=== PATIENT | female | born 1990 | race American Indian/Alaskan Native ===

== ENCOUNTER 2018-01-16 12:18 | Outpatient (CLI) | payer MEDICAID ==
[2018-01-16 12:34] VITALS: BP 101/63
[2018-01-16] MEDS ORDERED: LACTATED RINGERS 500 ML IV ONE (12:35)
[2018-01-16 14:10] LABS: Bilirubin,Urine NEG (Negative); Blood,Urine NEG (Negative); Color,Urine Yellow (Yellow); Mucus,Urine FEW /HPF; Protein,Urine <15 mg/dL mg/dL (Negative)
[2018-01-16] MEDS ORDERED: PROCARDIA*For Tocolysis only PO ONE (14:52)
== END 2018-01-16 17:17 | disposition home or self-care (01) ==
LOC: TRG 12:18
PROVIDERS: ATTEND Obstetrics & Gynecology
DX: O47.03 False labor before 37 completed weeks of gestation, third trimester (principal); Z3A.28 28 weeks gestation of pregnancy
CPT/HCPCS: 59025; 81001; 96360; 96361; J7120

== ENCOUNTER 2018-03-26 16:35 | Outpatient (CLI) | payer MEDICAID ==
[2018-03-26 16:50] VITALS: BP 122/77
== END 2018-03-26 17:44 | disposition home or self-care (01) ==
LOC: TRG 16:35
PROVIDERS: ATTEND Obstetrics & Gynecology
DX: O47.1 False labor at or after 37 completed weeks of gestation (principal); O99.513 Diseases of the respiratory system complicating pregnancy, third trimester; Z3A.38 38 weeks gestation of pregnancy
CPT/HCPCS: 59025

== ENCOUNTER 2018-04-07 19:14 | Inpatient (IN) | payer MEDICAID ==
[2018-04-07] MEDS ORDERED: MINERAL OIL PO PRN (20:18)
[2018-04-07] MEDS ORDERED: BRETHINE SUB-Q PRN (20:18)
[2018-04-07] MEDS ORDERED: XYLOCAINE 2% INFILTRATI ONE (20:18)
[2018-04-07] MEDS ORDERED: BRETHINE IVP PRN (20:18)
[2018-04-07] MEDS ORDERED: PHENERGAN PO PRN (20:24)
[2018-04-07] MEDS ORDERED: CERVIDIL VG ONE (20:24)
[2018-04-07] MEDS ORDERED: POLYCILLIN/NS 2 GM/100 ML 2 GM/100 ML BAG IV ONE (20:24)
[2018-04-07 20:41] LABS: Hematocrit 37.2 % (30.3-42.9); Hemoglobin 12.3 gm/dl (10.1-14.3); Mean Corpuscular HGB Conc 33 % (30-34); Mean Corpuscular Hemoglobin 29 pg (28-32); Mean Corpuscular Volume 89 fl (79-97); Platelet Count 212 K/mm3 (140-440); Red Blood Count 4.18 M/mm3 (3.65-5.03); Red Cell Distribution Width 14.6 % (13.2-15.2)
[2018-04-07] MEDS ORDERED: PITOCin/NS 20 UNIT/1000ML DRIP 20 UNITS/1,000 ML BAG IV SCH (21:00)
[2018-04-08] MEDS ORDERED: AMPICILLIN/NS 1 GM/50 ML 1 GM/50 ML BAG IV SCH (00:28)
[2018-04-08] MEDS: SUBLIMAZE IV PRN ×2 (00:35→09:11)
[2018-04-08] MEDS: LACTATED RINGERS 1,000 ML IV SCH ×5 (00:42→11:17)
[2018-04-08] MEDS: STADOL IV PRN ×3 (02:12→10:10)
[2018-04-08] MEDS ORDERED: CYTOTEC VG ONE (02:45)
--- NOTE | 2018-04-08 08:20 | History and Physical Report ---
History of Present Illness Date of examination: 04/08/18 Date of admission: 04/07/18 19:14 Chief complaint: I'm here to be induced History of present illness: Patient is a 28-year-old 1P0 presents for induction of labor at 40 weeks due to oligohydramnios. She has had a relatively uncomplicated course. She has her care into that in the first trimester. Past History Past Medical History: no pertinent history Past Surgical History: no surgical history Family/Genetic History: none Social history: single - Obstetrical History Expected Date of Delivery: 04/07/18 Actual Gestation: 40 Week(s) 2 Day(s) : 1 Number of Living Children: 0 Medications and Allergies Allergies Allergy/AdvReac Type Severity Reaction Status Date / Time [place] Allergy Hives Uncoded 01/16/18 12:34 Home Medications Medication Instructions Recorded Confirmed Last Taken Type Tablet 1 tab PO DAILY 04/07/18 04/07/18 04/06/18 10:00 History Active Meds: Active Medications Butorphanol Tartrate (Stadol) 2 mg IV Q2H PRN PRN Reason: Pain , Severe (7-10) Last Admin: 04/08/18 06:58 Dose: 2 mg Ephedrine Sulfate (Ephedrine Sulfate) 10 mg IV Q2M PRN PRN Reason: Hypotension Fentanyl (Sublimaze) 100 mcg IV Q2H PRN PRN Reason: Labor Pain Last Admin: 04/08/18 00:35 Dose: 100 mcg Ampicillin Sodium (Ampicillin/Ns 1 Gm/50 Ml) 1 gm in 50 mls @ 100 mls/hr IV Q4HR MARCELLA; Protocol Lactated Ringer's (Lactated Ringers) 1,000 mls @ 125 mls/hr IV DIRECT MARCELLA Last Admin: 04/08/18 02:16 Dose: 125 mls/hr Oxytocin/Sodium Chloride (Pitocin/Ns 20 Unit/1000ml Drip) 20 units in 1,000 mls @ 125 mls/hr IV DIRECT MARCELLA Mineral Oil (Mineral Oil) 30 ml PO QHS PRN PRN Reason: Constipation Promethazine HCl (Phenergan) 25 mg PO Q6H PRN PRN Reason: Nausea And Vomiting Terbutaline Sulfate (Brethine) 0.25 mg SUB-Q ONCE PRN PRN Reason: Hyperstimulation/Hypertonicity Terbutaline Sulfate (Brethine) 0.25 mg IVP ONCE PRN PRN Reason: Hyperstimulation/Hypertonicity Review of Systems All systems: negative Gastrointestinal: abdominal pain Genitourinary: pelvic pain, contractions Psychiatric: irritability, mood swings - Vital Signs Vital signs: Vital Signs Pulse BP 98 H 117/78 04/07/18 20:15 04/07/18 20:15 Temp Pulse Resp BP Pulse Ox 98.3 F 73 20 127/74 04/08/18 07:04 04/08/18 07:03 04/08/18 07:04 04/08/18 07:03 - Physical Exam Breasts: Cardiovascular: Regular rate, Normal S1, Normal S2 Lungs: Positive: Clear to auscultation, Normal air movement Abdomen: Positive: normal appearance, soft, normal bowel sounds. Negative: distention, tenderness Genitourinary (Female): Positive: normal external genitalia, normal perenium Vulva: both: normal Vagina: Positive: normal moisture. Negative: discharge Cervix: Negative: lesion, discharge Uterus: Positive: normal size, normal contour Adnexa: both: normal Anus/Rectum: Positive: normal perianal skin, heme negative. Negative: rectal mass, hemorrhoids Extremities: Deep Tendon Reflex Grade: Normal +2 - Obstetrical Cervical Dilatation: 1 Cervical Effacement Percentage: 50 station: 2 Uterine Contraction Pattern: Regular Uterine Tone Measurement Phase: Contraction Uterine Contraction Intensity: Moderate Results Result Diagrams: 04/09/18 03:51 Abnormal lab results 04/07/18 Range/Units 20:21 WBC 11.7 H (4.5-11.0) K/mm3 All other labs normal. Assessment and Plan IUP at 40 weeks here for induction of labor at term. Will begin cytotec for induction. Anticipate
[2018-04-08] MEDS ORDERED: PITOCin/NS 30 UNIT/500ML 30 UNITS/500 ML BAG IV SCH (09:00)
[2018-04-08] MEDS ORDERED: NARCAN 2 MG/2 ML IV PRN (11:27)
[2018-04-08] MEDS ORDERED: fentaNYL-BUPIV 2 MCG/ML-0.125% 200 MCG/100 ML BAG EPIDURAL SCH (12:00)
[2018-04-08] MEDS ORDERED: PHENERGAN PO PRN (14:56)
[2018-04-08] MEDS ORDERED: BENADRYL PO PRN (14:56)
[2018-04-08] MEDS ORDERED: DULCOLAX PR PRN (14:56)
[2018-04-08] MEDS ORDERED: MILK OF MAGNESIA PO PRN (14:56)
[2018-04-08] MEDS ORDERED: NORCO 5/325 PO PRN (14:56)
[2018-04-08] MEDS ORDERED: PHENERGAN PR PRN (14:56)
[2018-04-08] MEDS ORDERED: TYLENOL PO PRN (14:56)
[2018-04-08] MEDS ORDERED: LANSINOH TP PRN (14:56)
[2018-04-08] MEDS ORDERED: ZOFRAN IV PRN (14:56)
[2018-04-08] MEDS ORDERED: TUCKS PAD TP PRN (14:56)
[2018-04-08] MEDS ORDERED: SODIUM CHLORIDE FLUSH SYRINGE 10 ML IV NR (15:00)
[2018-04-08] MEDS ORDERED: PITOCin/NS 20 UNIT/1000ML DRIP 20,000 MILLIUNITS/1,000 ML BAG IV ONE (15:06)
[2018-04-08] MEDS: MOTRIN PO SCH ×2 (18:02→22:12)
[2018-04-08] MEDS: COLACE PO SCH (22:07)
[2018-04-09 04:25] LABS: Hemoglobin 11.3 gm/dl (10.1-14.3)
--- NOTE | 2018-04-09 09:47 | Procedure Note ---
OB Delivery Note - Delivery Date of Delivery: 04/08/18 Surgeon: TIFFANIE HALE Estimated blood loss: 200cc - Vaginal Delivery presentation: vertex Delivery position: OA Intrapartum events: none Delivery induction: oxytocin Delivery monitor: external FHT, external uterine Route of delivery: Delivery placenta: spontaneous Delivery cord: 3 umbilical vessels Episiotomy: none Delivery laceration: none Anesthesia: epidural Delivery comments: Viable male delivered at 1406 over intact perineum with spontaneous cry. Apgars 9,9. Weight 6 pounds 14 ounces. Placenta delivered spontaneously and intact. No lacerations. Patient tolerated procedure well. Excellent hemostasis.
--- NOTE | 2018-04-09 10:39 | Progress Note ---
Assessment and Plan PPD 1 s/p . Doing well. Patient planning for discharge on today. Subjective - Subjective Date of service: 04/09/18 Interval history: Patient is a 28-year-old 1P0 presents for induction of labor at 40 weeks due to oligohydramnios. She has had a relatively uncomplicated course. She has her care into that in the first trimester. Patient reports: appetite normal, voiding normally, pain well controlled, ambulating normally [place]: doing well Objective - Vital Signs Latest vital signs: Vital Signs Temp Pulse Resp BP BP Pulse Ox 04/09/18 08:24 97.9 F 89 16 96/54 100 04/09/18 00:06 98.7 F 80 16 110/72 98 04/08/18 22:12 18 04/08/18 20:14 98.8 F 106 H 18 115/71 97 04/08/18 16:40 98.4 F 90 20 109/68 99 04/08/18 15:12 88 126/74 04/08/18 14:57 78 127/75 04/08/18 14:52 98.6 F 04/08/18 14:42 90 124/83 04/08/18 14:19 96 H 126/93 04/08/18 14:04 96 H 132/81 04/08/18 13:49 79 141/87 04/08/18 13:34 80 132/79 04/08/18 13:22 97 H 153/109 04/08/18 13:07 98.8 F 04/08/18 13:06 73 134/80 04/08/18 12:51 102 H 145/82 04/08/18 12:45 87 85 04/08/18 12:40 100 H 100 04/08/18 12:39 96 H 93 04/08/18 12:35 86 140/79 100 04/08/18 12:32 84 93 04/08/18 12:30 89 100 04/08/18 12:25 77 100 04/08/18 12:20 79 100 04/08/18 12:19 75 132/76 04/08/18 12:15 74 99 04/08/18 12:10 93 H 100 04/08/18 12:05 77 100 04/08/18 12:04 77 129/80 04/08/18 12:00 88 100 04/08/18 11:55 83 99 04/08/18 11:50 82 127/76 98 04/08/18 11:45 77 98 04/08/18 11:40 79 97 04/08/18 11:39 96.8 F L 16 04/08/18 11:35 81 97 04/08/18 11:32 85 128/75 04/08/18 11:30 77 132/72 99 04/08/18 11:28 88 130/74 04/08/18 11:26 79 131/74 04/08/18 11:25 79 99 04/08/18 11:24 88 136/77 04/08/18 11:23 88 130/57 04/08/18 11:20 83 124/61 97 04/08/18 11:18 104 H 134/90 04/08/18 11:16 91 H 132/83 04/08/18 11:15 99 H 134/81 97 04/08/18 11:14 108 H 83 L 04/08/18 11:13 87 130/89 04/08/18 10:49 71 146/91 Intake and Output 04/08/18 04/09/18 04/09/18 22:59 06:59 14:59 Output Total 900 Balance -900 Output: Urine 900 Void 900 Other: Total, Output Amount 900 # Voids Void 1 Estimated Blood Loss 200 - Exam Breasts: Present: deferred Cardiovascular: Present: Regular rate, Normal S1, Normal S2 Lungs: Present: Clear to auscultation, Normal air movement Abdomen: Present: normal appearance, soft Uterus: Present: normal Extremities: Present: normal
--- NOTE | 2018-04-09 10:40 | Discharge Summary ---
Providers - Providers Date of Admission: 04/07/18 19:14 Date of discharge: 04/09/18 Attending physician: TIFFANIE HALE Primary care physician: TIFFANIE HALE Hospitalization Reason for admission: induction of labor Delivery: Discharge diagnosis: IUP at term delivered [place] baby: male Hospital course: unremarkable Condition at discharge: Good Disposition: DC-01 TO HOME OR SELFCARE Plan - Provider Discharge Summary Additional instructions: [] Smoking cessation referral if applicable(refer to patient education folder for contact #) [] Refer to [facility]'s [facility] Booklet Call your doctor immediately for: * Fever > 100.5 * Heavy vaginal bleeding ( >1 pad per hour) * Severe persistent headache * Shortness of breath * Reddened, hot, painful area to leg or breast * Drainage or odor from incision. * Keep incision clean and dry at all times and follow doctor's instructions regarding bathing/showering - Follow up plan Follow up: TIFFANIE HALE MD [Primary Care Provider] - 7 Days
[2018-04-09] MEDS: PRENATAL VITAMIN PO SCH (12:00)
[2018-04-09] MEDS: MOTRIN PO SCH ×3 (12:45→21:24)
[2018-04-09] MEDS: COLACE PO SCH (21:24)
[2018-04-10] MEDS: MOTRIN PO SCH ×2 (03:41→12:36)
[2018-04-10] MEDS: PRENATAL VITAMIN PO SCH (10:44)
[2018-04-10] MEDS: COLACE PO SCH (12:36)
[2018-04-10 15:57] VITALS: BP 127/83
== END 2018-04-10 16:30 | disposition home or self-care (01) | DRG 775 ==
LOC: LD 19:14 → OB 04-08 17:08
PROVIDERS: ADMIT Obstetrics & Gynecology; ATTEND Obstetrics & Gynecology
PROC: 10E0XZZ Delivery of Products of Conception, External Approach (ICD-10-PCS; principal; 2018-04-08)
PROC: 3E033VJ Introduction of Other Hormone into Peripheral Vein, Percutaneous Approach (ICD-10-PCS; 2018-04-08)
PROC: 3E0R3BZ Introduction of Anesthetic Agent into Spinal Canal, Percutaneous Approach (ICD-10-PCS; 2018-04-08)
PROC: 00HU33Z Insertion of Infusion Device into Spinal Canal, Percutaneous Approach (ICD-10-PCS; 2018-04-08)
DX: O41.03X0 Oligohydramnios, third trimester, not applicable or unspecified (principal); Z3A.40 40 weeks gestation of pregnancy; Z37.0 Single live birth
CPT/HCPCS: 36415; 59200; 85014; 85018; 85027; 86592; 86850; 86900; 86901; J0595; J2590; J3010; J7120